=== PATIENT | female | born 1995 | race African-American/Black ===

== ENCOUNTER 2021-09-18 09:11 | Outpatient (CLI) | payer OTHER, BC | END 2021-09-18 09:12 | disposition home or self-care (01) | LOC: CSHLAB 09:11 | PROVIDERS: ATTEND Obstetrics & Gynecology | DX: Z20.822 Contact with and (suspected) exposure to COVID-19 (principal) | CPT/HCPCS: 87811 ==

== ENCOUNTER 2021-09-22 05:27 | Inpatient (IN) | payer OTHER ==
[~2021-09-22 05:27] MED LIST: Acetaminophen 500 MG TAB PO PRN; Carboprost 250 MCG/ML AMP IM PRN; Diphenoxylate HCl/Atropine Tablet PO PRN; Docusate 100 MG CAP PO PRN; HYDROcodone/Acetaminophen 5/325 mg Tablet PO PRN; Ibuprofen 800 MG TAB PO PRN; Lactated Ringer's 1,000 ML IV SCH; Lidocaine 1% (PF) 30 ML VIAL SC PRN; Misoprostol 200 MCG TAB PR PRN; NS w/ Oxytocin 30 units 500 ML IV SCH; Ondansetron PF 4 MG/2 ML Vial IVP PRN; Promethazine HCl 25 MG/ML VIAL IM PRN; hydrALAZINE 20 MG/ML VIAL SLOW IVP PRN
[2021-09-22 05:51] VITALS: BMI 40.6
[2021-09-22 07:13] LABS: Hemoglobin 11.4 g/dL (12.0-15.5); Mean Corpuscular HGB CONC 33.6 g/dL (32.0-36.0); Mean Corpuscular Hemoglobin 23.9 pg (27.0-33.0); Mean Corpuscular Volume 71.2 fl (81.6-98.3); Platelet Count 254 10x3/uL (150-450); RBC Distribution Width 15.7 % (11.5-14.5); Red Blood Cell (RBC) Count 4.76 10x6/uL (3.90-5.03); White Blood Cell (WBC) Count 8.3 10x3/uL (3.5-10.5)
[2021-09-22 08:32] LABS: Hep B Surf Ag Non-Reactive S/CO (NonReactive); Syphilis Antibody Nonreactive (Nonreactive); Syphilis Antibody Index 0.11 S/CO (<1.00 Non-Reactive)
[2021-09-22 08:39] LABS: HBSAg Index 0.23 S/CO (0-0.99)
[2021-09-22] MEDS ORDERED: Zolpidem Tartrate 5 MG TAB PO PRN (15:21)
[2021-09-22] MEDS ORDERED: diphenhydrAMINE 25 MG CAP PO PRN (15:21)
[2021-09-22] MEDS ORDERED: hydrALAZINE 20 MG/ML VIAL SLOW IVP PRN (15:21)
[2021-09-22] MEDS ORDERED: Benzocaine-Menthol 82.5 ML CAN TOP PRN (15:21)
[2021-09-22] MEDS ORDERED: Ondansetron PF 4 MG/2 ML Vial IVP PRN (15:21)
[2021-09-22] MEDS ORDERED: Milk Of Magnesia 30 ML UDCUP PO PRN (15:21)
[2021-09-22] MEDS ORDERED: Bisacodyl 10 MG SUPP PR PRN (15:21)
[2021-09-22] MEDS ORDERED: Preparation H Ointment 28 GM TUBE PR PRN (15:21)
[2021-09-22] MEDS ORDERED: Promethazine HCl 25 MG/ML VIAL IM PRN (15:21)
[2021-09-22] MEDS ORDERED: Lanolin Ointment 7 GM TUBE TOP PRN (15:21)
[2021-09-22] MEDS ORDERED: Misoprostol 200 MCG TAB VAG PRN (15:21)
[2021-09-22] MEDS ORDERED: NS w/ Oxytocin 30 units 500 ML IV SCH (15:21)
[2021-09-22] MEDS: Ibuprofen 800 MG TAB PO SCH (16:40)
[2021-09-22] MEDS: Ferrous Sulfate 325 MG TAB PO SCH (16:45)
[2021-09-22] MEDS: Docusate 100 MG CAP PO SCH (20:33)
[2021-09-22] MEDS: HYDROcodone/Acetaminophen 5/325 mg Tablet PO PRN (22:11)
[2021-09-23] MEDS: Ibuprofen 800 MG TAB PO SCH ×3 (00:18→14:52)
[2021-09-23 04:31] LABS: Hemoglobin 10.2 g/dL (12.0-15.5); Mean Corpuscular HGB CONC 33.6 g/dL (32.0-36.0); Mean Corpuscular Hemoglobin 24.2 pg (27.0-33.0); Mean Platelet Volume 11.9 fl (7.4-10.4); Platelet Count 203 10x3/uL (150-450); RBC Distribution Width 15.7 % (11.5-14.5); Red Blood Cell (RBC) Count 4.22 10x6/uL (3.90-5.03); White Blood Cell (WBC) Count 10.8 10x3/uL (3.5-10.5)
[2021-09-23] MEDS: Ferrous Sulfate 325 MG TAB PO SCH ×2 (08:29→19:29)
[2021-09-23] MEDS: Prenatal Vitamin 1 TAB PO SCH (08:47)
[2021-09-23] MEDS: Docusate 100 MG CAP PO SCH ×2 (08:47→20:55)
[2021-09-23] MEDS ORDERED: Measles/Mumps/Rubella 10 MCG/0.5 ML VIAL SC ONE (15:21)
[2021-09-23] MEDS ORDERED: Boostrix 0.5 ML (Tdap) VIAL IM ONE (15:21)
[2021-09-23] MEDS ORDERED: Varicella virus, LIVE 0.5 ML VIAL SC ONE (15:21)
[2021-09-23] MEDS: HYDROcodone/Acetaminophen 5/325 mg Tablet PO PRN (20:54)
[2021-09-24] MEDS: Ibuprofen 800 MG TAB PO SCH ×2 (00:24→08:24)
[2021-09-24] MEDS: Ferrous Sulfate 325 MG TAB PO SCH (08:07)
[2021-09-24] MEDS: Prenatal Vitamin 1 TAB PO SCH (08:24)
[2021-09-24] MEDS: Docusate 100 MG CAP PO SCH (08:24)
[2021-09-24] MEDS: HYDROcodone/Acetaminophen 5/325 mg Tablet PO PRN (10:00)
[2021-09-24 11:29] VITALS: BP 139/85; TEMP 98.4
== END 2021-09-24 14:45 | disposition home or self-care (01) | DRG 807 ==
LOC: CSHLD 05:27 → CSHPP 15:49
PROVIDERS: ADMIT Obstetrics & Gynecology; ATTEND Obstetrics & Gynecology
PROC: 10E0XZZ Delivery of Products of Conception, External Approach (ICD-10-PCS; principal; 2021-09-22)
DX: O10.92 Unspecified pre-existing hypertension complicating childbirth (principal); Z37.0 Single live birth; Z3A.39 39 weeks gestation of pregnancy
CPT/HCPCS: 85027; 86780; 86850; 86900; 86901; 87340; J0595; J2590